=== PATIENT | male | born 1945 | race African-American/Black ===

== ENCOUNTER → 2018-08-12 | Outpatient (CLI) | payer MEDICARE ==
[2018-08-12 13:42] LABS: BASOPHILS % 0.2 % (0.0-1.0); EOSINOPHILS # (AUTO) 0.3 (0.0-0.4); EOSINOPHILS % 6.5 % (0.0-6.0); HEMATOCRIT 38.8 % (38.2-49.6); HEMOGLOBIN 12.9 g/dL (14.0-18.0); LYMPHOCYTES # (AUTO) 1.9 (1.0-3.2); MEAN CORPUSCULAR HEMOGLOBIN 29.4 pg (28-32); MEAN CORPUSCULAR HGB CONC 33.2 g/dL (31-35); MEAN CORPUSCULAR VOLUME 88.4 fL (81-99); MONOCYTES # (AUTO) 0.5 (0.2-0.8); MONOCYTES % 11.2 % (4.4-11.3); NEUTROPHILS # (AUTO) 1.8 (2.1-6.9); NEUTROPHILS % 40.1 % (38.7-80.0); PLATELET COUNT 112 x10e3/uL (140-360); RED BLOOD COUNT 4.39 x10e6/uL (4.3-5.7); RED CELL DISTRIBUTION WIDTH 15.1 % (11.7-14.4)
[2018-08-12 13:49] LABS: BILIRUBIN,URINE NEGATIVE (NEGATIVE); CLARITY,URINE SL CLOUDY (CLEAR); COLOR,URINE YELLOW (YELLOW); KETONES,URINE NEGATIVE (NEGATIVE); LEUKOCYTE ESTERASE ,URINE TRACE (NEGATIVE); NITRITE,URINE NEGATIVE (NEGATIVE); PROTEIN,URINE DIPSTICK NEGATIVE (NEGATIVE); URINE UROBILINOGEN 0.2 mg/dL (0.2 - 1)
--- NOTE | 2018-08-12 14:29 | Diagnostic Imaging Report ---
Radiographs of the cervical spine - 5 views with bilateral obliques HISTORY: Pain COMPARISON: None available. FINDINGS: Bones: No acute displaced fracture. Osseous alignment is within normal limits. Joints: Scattered degenerative change. This is most pronounced at C5/6. There is associated uncovertebral hypertrophy and facet arthrosis with mild bilateral neural foraminal narrowing at this level. No osseous erosion. Soft tissues: The soft tissues appear unremarkable. IMPRESSION: Scattered degenerative change. This is most pronounced at C5/6. There is associated uncovertebral hypertrophy and facet arthrosis with mild bilateral neural foraminal narrowing at this level. No osseous erosion. If indicated MRI may be of benefit. Signed by: Dr. Jonah Ceballos M.D. on 08/12/2018 2:25 PM
[2018-08-12 14:30] LABS: GLUCOSE 104 mg/dL (74-118)
--- NOTE | 2018-08-12 14:35 | Diagnostic Imaging Report ---
Exam: Bilateral knees, 3 views History: Osteoarthritis Comparison: None. Findings: No acute, displaced fracture or dislocation. Symmetric moderate tricompartmental joint space narrowing and marginal osteophytosis. No joint effusions. Soft tissues are unremarkable. Atherosclerotic vascular calcifications. Impression: No acute osseous abnormality. 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 Signed by: Dr. Giovanni Madsen M.D. on 08/12/2018 2:32 PM
[2018-08-12 15:09] LABS: ALANINE AMINOTRANSFERASE 13 IU/L (0-55); ALBUMIN 3.7 g/dL (3.5-5.0); ALBUMIN/GLOBULIN RATIO 1.1 (0.8-2.0); ALKALINE PHOSPHATASE 68 IU/L (40-150); ANION GAP 12.9 mmol/L (8-16); BLOOD UREA NITROGEN 16 mg/dL (7-26); BUN/CREATININE RATIO 18 (6-25); CALCIUM 9.5 mg/dL (8.4-10.2); CARBON DIOXIDE 25 mmol/L (22-29); CHLORIDE 106 mmol/L (98-107); CHOLESTEROL 183 MD/DL (0-199); EST GLOMERULAR FILTRATION RATE > 60 ML/MIN (60-); HDL CHOLESTEROL 46 MG/DL (40-60); LDL CHOLESTEROL 111 MG/DL (60-130); POTASSIUM 3.9 mmol/L (3.5-5.1); SODIUM 140 mmol/L (136-145); TRIGLYCERIDES 128 MG/DL (0-149)
== END ==
LOC: RAD 12:40
PROVIDERS: ATTEND Emergency Medicine
DX: Z00.00 Encounter for general adult medical examination without abnormal findings (principal); E11.9 Type 2 diabetes mellitus without complications; E78.5 Hyperlipidemia, unspecified; M17.0 Bilateral primary osteoarthritis of knee; M54.2 Cervicalgia; M47.892 Other spondylosis, cervical region
CPT/HCPCS: 36415; 72050; 80053; 80061; 81001; 82044; 83036; 84439; 84443; 85025

== ENCOUNTER → 2018-09-02 | Outpatient (CLI) | payer MEDICARE | LOC: LAB 10:01 | PROVIDERS: ATTEND Emergency Medicine | DX: N40.0 Benign prostatic hyperplasia without lower urinary tract symptoms (principal) | CPT/HCPCS: 84152 ==